=== PATIENT | male | born 1980 | race American Indian/Alaskan Native ===

== ENCOUNTER 2016-04-11 07:47 | Outpatient (CLI) | payer MEDICARE, OTHER ==
[2016-04-11] MEDS ORDERED: XYLOCAINE TOPICAL 4% TP ONE ×2 (08:02→15:25)
== END 2016-04-11 07:48 | disposition home or self-care (01) ==
LOC: WOUND 07:47
PROVIDERS: ATTEND Orthopaedic Surgery
DX: S81.801A Unspecified open wound, right lower leg, initial encounter (principal); L73.2 Hidradenitis suppurativa; L05.91 Pilonidal cyst without abscess; X58.XXXA Exposure to other specified factors, initial encounter; Y93.9 Activity, unspecified; Y92.9 Unspecified place or not applicable; Y99.9 Unspecified external cause status
CPT/HCPCS: 87075; 87116

== ENCOUNTER 2016-04-18 07:47 | Outpatient (CLI) | payer MEDICARE, OTHER ==
[2016-04-18] MEDS ORDERED: XYLOCAINE TOPICAL 2% ONE (08:05)
[2016-04-18] MEDS ORDERED: XYLOCAINE TOPICAL 4% TP ONE (15:37)
[2016-04-18] MEDS ORDERED: XYLOCAINE TOPICAL 2% TP ONE (15:41)
== END 2016-04-18 07:48 | disposition home or self-care (01) ==
LOC: WOUND 07:47
PROVIDERS: ATTEND Orthopaedic Surgery
DX: L73.2 Hidradenitis suppurativa (principal)

== ENCOUNTER 2016-04-25 07:49 | Outpatient (CLI) | payer MEDICARE, OTHER ==
[2016-04-25] MEDS ORDERED: XYLOCAINE TOPICAL 2% ONE (08:12)
[2016-04-25] MEDS ORDERED: XYLOCAINE TOPICAL 2% TP ONE (12:25)
== END 2016-04-25 07:50 | disposition home or self-care (01) ==
LOC: WOUND 07:49
PROVIDERS: ATTEND Orthopaedic Surgery
DX: L73.2 Hidradenitis suppurativa (principal)

== ENCOUNTER 2016-05-02 07:52 | Outpatient (CLI) | payer MEDICARE, OTHER ==
[2016-05-02] MEDS ORDERED: XYLOCAINE TOPICAL 2% ONE (08:12)
== END 2016-05-02 07:53 | disposition home or self-care (01) ==
LOC: WOUND 07:52
PROVIDERS: ATTEND Orthopaedic Surgery
DX: L73.2 Hidradenitis suppurativa (principal); H40.9 Unspecified glaucoma

== ENCOUNTER 2016-05-09 13:14 | Outpatient (CLI) | payer MEDICARE, OTHER | END 2016-05-09 13:15 | disposition home or self-care (01) | LOC: WOUND 13:14 | PROVIDERS: ATTEND Internal Medicine | DX: T81.89XA Other complications of procedures, not elsewhere classified, initial encounter (principal); L97.202 Non-pressure chronic ulcer of unspecified calf with fat layer exposed; H40.10X4 Unspecified open-angle glaucoma, indeterminate stage; L73.2 Hidradenitis suppurativa; E66.01 Morbid (severe) obesity due to excess calories; F32.9 Major depressive disorder, single episode, unspecified; Y83.8 Other surgical procedures as the cause of abnormal reaction of the patient, or of later complication, without mention of misadventure at the time of the procedure | CPT/HCPCS: 99213; G0463 ==